=== PATIENT | male | born 1935 | race Asian ===

== ENCOUNTER → 2016-10-08 | Outpatient (CLI) | payer BC ==
[~2016-10-08] MED LIST: ALBUAER2 INH; ASPI81TA28 PO; CETI10TA10 PO; DIPH-437 PO; FLUO0.05 TOP; IBUP-103 PO; KETO2CRE14 TOP; MEMA1PAK PO; MOME50SP5 NAE; PRT/40 PO; TAMS0.4C59 PO
--- NOTE | 2016-10-08 10:14 | DIAGNOSTIC IMAGING REPORT ---
CHEST 2 VIEWS ROUTINE CLINICAL HISTORY: R05 Cough COMPARISON STUDY: 08/29/2016 FINDINGS: The cardiac and mediastinal contours are normal. There is no focal pulmonary consolidation. There is no failure. There are no pleural effusions.[ IMPRESSION: No active disease in the chest. Electronically signed by: Manav Black M.D. 10/08/2016 10:13 AM Dictated Date/Time: 10/08/2016 10:12 AM
[2016-10-08 10:52] LABS: BASO % 0.3 %; BASO ABS # 0.02 K/uL (0-0.2); COMPLETE YES; EOS % 1.7 %; HEMATOCRIT 40.8 % (42-52); IG% 0.2 %; LYMPH % 30.4 %; LYMPH ABS # 1.78 K/uL (1.2-3.4); MEAN CELL VOLUME 89.7 fL (80-100); MEAN CORPUSCULAR HEMOGLOBIN 30.5 pg (25-34); MEAN CORPUSCULAR HGB CONC 34.1 g/dl (32-36); MEAN PLATELET VOLUME 11.6 fL (7.4-10.4); MONO % 5.8 %; NEUT % 61.6 %; PLATELET COUNT 218 K/uL (130-400); RED BLOOD COUNT 4.55 M/uL (4.7-6.1); WHITE BLOOD COUNT 5.86 K/uL (4.8-10.8)
[2016-10-08 11:04] LABS: BLOOD UREA NITROGEN 17 mg/dl (7-18); BUN/CREATININE RATIO 19.4 (10-20); CALCIUM 8.2 mg/dl (8.5-10.1); CARBON DIOXIDE 29 mmol/L (21-32); CHLORIDE 109 mmol/L (98-107); CREATININE 0.89 mg/dl (0.60-1.40); GLUCOSE 85 mg/dl (70-99); POTASSIUM 3.9 mmol/L (3.5-5.1); SODIUM 144 mmol/L (136-145)
[2016-10-08 11:14] LABS: CHOLESTEROL 205 mg/dl (0-200); CHOLESTEROL/HDL RATIO 2.4; FERRITIN 59.2 ng/ml (8.0-388.0); HDL CHOLESTEROL 85 mg/dl; LDL CHOLESTEROL CALCULATED 110 mg/dl; TRIGLYCERIDES 49 mg/dl (0-150); VERY LOW DENSITY LIPOPROT CALC 10 mg/dl
== END | disposition home or self-care (01) ==
LOC: C.RAD1850 09:50
PROVIDERS: ATTEND Internal Medicine
DX: R05 Cough (principal); R97.20 Elevated prostate specific antigen [PSA]; D50.9 Iron deficiency anemia, unspecified; R73.9 Hyperglycemia, unspecified; R00.1 Bradycardia, unspecified; E55.9 Vitamin D deficiency, unspecified

== ENCOUNTER → 2016-10-22 | Outpatient (CLI) | payer BC ==
[~2016-10-22] MED LIST changes: +GADAVIST IV PRN
--- NOTE | 2016-10-22 13:44 | DIAGNOSTIC IMAGING REPORT ---
Brain and bilateral internal auditory canal MRI WITH AND WITHOUT CONTRAST HISTORY: H91.8X9 Asymmetrical hearing loss, unspecified [id number] TECHNIQUE: Multiplanar multisequence MRI of the brain and bilateral internal auditory canals were performed both before and after the intravenous administration of contrast. COMPARISON STUDY: Brain MRI 01/07/2015. FINDINGS: There is no mass, hematoma, midline shift, or acute infarct. The paranasal sinuses are clear. The mastoid air cells are clear. The ventricles and sulci demonstrate moderate age-related involutional changes. Scattered foci of T2 hyperintensity seen within the periventricular and subcortical white matter are nonspecific but suggestive of moderate microvascular ischemic changes. The major vascular flow voids at the skull base are well-maintained. No abnormal enhancement. There is no acute infarct within the right caudate head. Bilateral internal auditory canals are within normal limits. There are no masses identified. The 7th and 8th cranial nerves are normal in course and caliber. No evidence for inner ear dysplasia. IMPRESSION: 1. No acute intracranial abnormality. 2. Moderate atrophy and microvascular ischemic changes are again noted. 3. Normal bilateral internal auditory canals. Electronically signed by: Irvin Wakefield M.D. 10/22/2016 1:43 PM Dictated Date/Time: 10/22/2016 1:35 PM
== END | disposition home or self-care (01) ==
LOC: C.MRI 10:50
DX: H91.8X9 Other specified hearing loss, unspecified ear (principal); G31.9 Degenerative disease of nervous system, unspecified

== ENCOUNTER → 2017-02-09 | Outpatient (CLI) | payer BC ==
[~2017-02-09] MED LIST changes: -GADAVIST IV PRN; +PANT40TA2 PO; -PRT/40 PO
[2017-02-09 13:22] LABS: ESTIMATED AVERAGE GLUCOSE 85 mg/dl; HA1C FLAG Normal (Normal)
[2017-02-09 14:43] LABS: LYME DISEASE AB IGG NEG (NEG); LYME DISEASE AB IGM NEG (NEG)
[2017-02-13 12:51] LABS: VITAMIN B6** TC 926 107.6 ng/mL (2.1-21.7)
--- NOTE | 2017-02-15 10:47 | CODING QUERY MEDICAL NECESSITY ---
SUPPORTING DIAGNOSIS NEEDED Dr. Phillips, A supporting diagnosis is required for the test/procedure performed on this patient in order for us to be reimbursed by the patient's insurance. Please provide a supporting diagnosis for the following test/procedure listed below next to the test name along with your signature. *If there is no additional diagnosis for this patient that would support the following test/procedure please document that below next to the test/procedure. Test(s)/Procedure(s) that require a supporting diagnosis: * ([id number]) B12 VITAMIN LEVEL DIAGNOSIS: * ([id number]) VITAMIN B6 PYRODXAL PHOSPHATE DIAGNOSIS: * 51213 GLYCATED HEMOGLOBIN DIAGNOSIS: DATE OF SERVICE: 02/09/17 Provider Signature: Date: Thank you Campbell Coronel [facility] Information Management Once completed, please kindly fax back to [phone] For questions please call [phone]
== END | disposition home or self-care (01) ==
LOC: C.LAB1850 10:12
PROVIDERS: ATTEND Psychiatry & Neurology Neurology
DX: F01.50 Vascular dementia, unspecified severity, without behavioral disturbance, psychotic disturbance, mood disturbance, and anxiety (principal); R53.82 Chronic fatigue, unspecified; R41.3 Other amnesia; R73.9 Hyperglycemia, unspecified; E78.5 Hyperlipidemia, unspecified; D50.9 Iron deficiency anemia, unspecified

== ENCOUNTER 2022-09-06 19:07 | Inpatient (IN) ==
[2022-09-06] MEDS ORDERED: SODIUM CHLORIDE 0.9% 1000ML 1,000 ML IV ONE (19:15)
--- NOTE | 2022-09-06 19:20 | Emergency Department Note ---
Impression & Plan Rhabdomyolysis, Elevated troponin, Abnormal ECG ED Provider Note NAME: PATRIA SAVAGE AGE: 86 SEX: M : 1935 ARRIVES VIA: Ambulance INFORMANT: Patient, Both caretakers ED PROVIDER(S): Samy Jacome DO CHIEF COMPLAINT: fall HPI: Patient is a pleasantly demented 86-year-old male who presents to the ER following a mechanical fall. History is obtained from 2 caretakers who are at bedside. Neither of them that were there when this occurred as the third sand slinger operator was there. They did relay the story to these 2 caretakers. She notes that patient went into the bathroom to get a shower and locked the door. He heard a thud and he went over and the patient was talking to him. It took him a while to get into the room. Patient denies all complaints. They brought him in by EMS for complete work-up. History is limited with dementia PAST MEDICAL HISTORY:See Below PAST SURGICAL HISTORY:See Below FAMILY HISTORY:See Below SOCIAL HISTORY:See Below HOME MEDICATIONS:See Below ALLERGIES:See Below VITALS:See Below PHYSICAL EXAMINATION: GENERAL: alert, well appearing, well nourished, no distress, non-toxic HEAD: normal cephalic, atraumatic EYE EXAM: normal conjunctiva, PERRL and EOM's grossly intact OROPHARYNX: no exudate, no erythema, lips, buccal mucosa, and tongue normal and mucous membranes are moist NECK: supple, no nuchal rigidity, no adenopathy, non-tender CHEST: stable to compression anteriorly and posteriorly LUNGS: clear to auscultation. Normal chest wall mechanics HEART: no murmurs, S1 normal and S2 normal ABDOMEN: abdomen soft, non-tender, normo-active bowel sounds, no masses, no rebound or guarding. PELVIS: stable to compression anteriorly and posteriorly BACK: Back is symmetrical on inspection and there is no deformity, no midline tenderness, no CVA tenderness. UPPER EXTREMITIES: full active and passive range of motion of all joints without tenderness to palpation LOWER EXTREMITIES: full active and passive range of motion of all joints without tenderness to palpation NEURO EXAM: Awake alert pleasantly demented, cranial nerves II-XII grossly intact, normal speech, no gross weakness of arms, no gross weakness of legs. GCS: 14. MEDICAL DECISION MAKING: Patient is a very pleasantly demented 86-year-old male who history is obtained by 2 caretakers at bedside. They note that he was in the bathroom for 2 hours and are not sure what happened. They were talking to him through the door at 1 point. Unclear whether the patient had a syncopal event. IV was established blood work is obtained. Labs show mild leukocytosis 11,000. No significant anemia. BMP was unremarkable. Creatinine elevated at 1000. Troponin elevated at 30. UA with small amount of ketones suggesting dehydration. COVID was negative. CT head and cervical spine was negative. Chest x-ray was unremarkable. EKG does show new T wave inversions in comparison to previous. Uncertain again if patient syncopized versus fall as there is no one there to witness this and he does have dementia and with the elevated troponin and EKG changes discussed with the hospitalist for further evaluation. He was given IV fluids due to the rhabdo. external records were reviewed. Discussed with Dr. Lux Neal in regards to the presentation work-up and treatment. Triage Nursing notes reviewed. Limited review of prior medical records performed Vital Signs: reviewed and remarkable for HTN Differential diagnosis: Differential diagnoses include major intracranial, cervical, spinal, thoracic, abdominal, pelvic and neurologic injury. Fracture, contusion, sprain, strain, laceration, abrasions included as well. ER treatment provided: See below Diagnostics interpreted by me include EKG and cardiac monitoring as listed below: -Cardiac Monitoring: An order was placed for continuous cardiac monitoring. The monitor shows a rate of 70 with sinus rhythm. -ECG: Sinus rhythm rate of 65 Normal axis T wave inversion in the lateral leads This is new in comparison to previous -Laboratory studies:Interpreted by me as stated above in MDM and shown below. 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 Shingles Vertigo Surgical History S/P colonoscopy S/P inguinal hernia repair S/P wrist surgery Family History Brother Hepatitis Sister Cancer Other No family history of allergies No family history of bleeding disorder Denies family history of Ovarian cancer Prostate cancer Hearing loss Heart disease Myocardial infarction Breast cancer Colorectal cancer Hypertension Stroke Asthma Social History Smoking Status: Former smoker Tobacco Type: Cigarettes Age Started Using Tobacco: 16; Age Quit Using Tobacco: 38; packs per day: 1; Second Hand Exposure: No; Hx Alcohol Use: Yes Alcohol type: wine Alcohol Intake Frequency Comment: very rarely has wine Hx Substance Use: No Preferred Language: Nigerian Visual Impairment: Limited Hearing Ability: Use of Hearing Aid marital status: / Current Living Situation: Alone Current Living Situation Comment: Caregiver is Hilario- with him 24 hours a day current occupational status: retired How many Children do You have: 2 Feels Safe at Home: Yes Childhood Exposure to Second-Hand Smoke: No (caregiver unsure and pt doesn't know ) caffeine: No Dental Care, Regularly: Yes Physical Activity Frequency: 3-4 Times per Week Physical Activity Frequency Comment: walks when nice outside Seatbelt Use: always Sunscreen Use: Yes (if goes in sun ) Allergies Allergies Allergy/AdvReac Type Severity Reaction Status Date / Time pollen extracts Allergy Intermediate SNEEZING, Verified 09/06/22 20:28 RUNNY NOSE, ITCHY EYES Dust Allergy Intermediate SNEEZING, Uncoded 09/06/22 20:28 RUNNY NOSE, ITCHY EYES Rivastigmine PT24 AdvReac Unknown Vomiting, Uncoded 09/06/22 20:28 nausea Home Meds Home Medications Medication Instructions Recorded Confirmed atorvastatin 10 mg tablet 10 mg PO HS #30 tabs 03/27/21 09/06/22 acetaminophen 500 mg tablet 500 mg PO QID PRN Pain 12/11/21 09/06/22 (Tylenol Extra Strength) docusate sodium 100 mg capsule 100 mg PO .every other day 12/11/21 09/06/22 (Colace) melatonin 5 mg capsule 5 mg PO HS 12/11/21 09/06/22 loratadine 10 mg tablet (Claritin) 10 mg PO DAILY 10/20/22 01/08/23 amlodipine 2.5 mg tablet 2.5 mg PO QAM 09/06/22 09/06/22 quetiapine 25 mg tablet 50 mg PO HS 09/06/22 09/06/22 Previous Rx's Medication Instructions Recorded galantamine 16 mg 24 hr 16 mg PO QAM #30 caps 08/19/22 capsule,extended release Results & Data (ED) Vital Signs Vital Signs - 24 hr 09/06/22 19:28 09/06/22 20:09 09/06/22 20:29 Pulse Rate 69 Pulse Rate [Right Finger] 72 Respiratory Rate 20 Respiratory Depth Normal Blood Pressure 163/78 H Blood Pressure Mean 106 Pulse Oximetry 95 98 95 Oxygen Delivery Method Room Air Room Air Sepsis Recent Fever Within 48 Hours No Sepsis New/Unexplained Change in Mental Status No Sepsis Action Taken by Nursing No Action Required Laboratory Data 09/06/22 19:20 09/06/22 19:20 Lab Results 09/06/22 09/06/22 09/06/22 Range/Units 19:20 19:20 19:24 WBC 11.01 H (4.8-10.8) K/ul RBC 4.37 L (4.63-6.08) M/uL Hgb 13.4 L (14.0-18.0) g/dl Hct 38.5 L (40.1-51.0) % MCV 88.1 (80.0-100.0) fL MCH 30.7 (25.0-34.0) pg MCHC 34.8 (32.0-36.0) g/dL RDW Std Deviation 44.3 (36.4-46.3) fL RDW Coeff of Raegan 13.7 (11.5-14.5) % Plt Count 252 (130-400) K/uL MPV 11.3 (9.4-12.4) fL Immature Gran % (Auto) 0.3 % Neut % (Auto) 85.0 % Lymph % (Auto) 8.4 % Jack % (Auto) 6.0 % Eos % (Auto) 0.0 % Baso % (Auto) 0.3 % Neut # (Auto) 9.37 H (1.4-6.5) K/uL Lymph # (Auto) 0.92 L (1.2-3.4) K/uL Jack # (Auto) 0.66 (0.24-0.82) K/uL Eos # (Auto) 0.00 (0-0.50) K/uL Baso # (Auto) 0.03 (0-0.2) K/uL Immature Gran # (Auto) 0.03 H (0.00-0.02) K/uL Sodium 138 (136-145) mmol/L Potassium 3.8 (3.5-5.1) mmol/L Chloride 105 (98-107) mmol/L Carbon Dioxide 23 (21-32) mmol/L Anion Gap 10 (3-11) BUN 16 (6-23) mg/dl Creatinine 0.80 (0.6-1.4) mg/dl Est Cr Clr Drug Dosing 54.1 ml/min Est GFR ( Amer) 92.4 ml/min Est GFR (Non-Af Amer) 79.8 ml/min BUN/Creatinine Ratio 20.0 (10-20) Glucose 106 H (70-99(Fasting)) mg/dl Calcium 9.1 (8.5-10.1) mg/dl Total Bilirubin 1.5 H (0.2-1.0) mg/dl AST 26 (13-39) U/L ALT 13 (7-52) U/L Alkaline Phosphatase 75 (34-104) U/L Total Creatine Kinase 1002 H (30-223) U/L Troponin I High Sens 29.6 H (0-20) pg/ml Total Protein 7.2 (6.0-8.3) gm/dl Albumin 4.1 (3.4-5.0) gm/dl Globulin 3.1 (2.5-4.0) gm/dl Albumin/Globulin Ratio 1.3 (0.9-2) Urine Color Urine Appearance (Clear) Urine pH (4.5-7.5) Ur Specific Colome (1.000-1.030) Urine Protein (Negative) Urine Glucose (UA) (Negative) Urine Ketones (Negative) Urine Blood (Negative) Urine Nitrite (Negative) Urine Bilirubin (Negative) Urine Urobilinogen (Negative) Ur Leukocyte Esterase (Negative) SARS-CoV-2, RNA, NAAT NEGATIVE (NEGATIVE) 09/06/22 Range/Units 19:46 WBC (4.8-10.8) K/ul RBC (4.63-6.08) M/uL Hgb (14.0-18.0) g/dl Hct (40.1-51.0) % MCV (80.0-100.0) fL MCH (25.0-34.0) pg MCHC (32.0-36.0) g/dL RDW Std Deviation (36.4-46.3) fL RDW Coeff of Raegan (11.5-14.5) % Plt Count (130-400) K/uL MPV (9.4-12.4) fL Immature Gran % (Auto) % Neut % (Auto) % Lymph % (Auto) % Jack % (Auto) % Eos % (Auto) % Baso % (Auto) % Neut # (Auto) (1.4-6.5) K/uL Lymph # (Auto) (1.2-3.4) K/uL Jack # (Auto) (0.24-0.82) K/uL Eos # (Auto) (0-0.50) K/uL Baso # (Auto) (0-0.2) K/uL Immature Gran # (Auto) (0.00-0.02) K/uL Sodium (136-145) mmol/L Potassium (3.5-5.1) mmol/L Chloride (98-107) mmol/L Carbon Dioxide (21-32) mmol/L Anion Gap (3-11) BUN (6-23) mg/dl Creatinine (0.6-1.4) mg/dl Est Cr Clr Drug Dosing ml/min Est GFR ( Amer) ml/min Est GFR (Non-Af Amer) ml/min BUN/Creatinine Ratio (10-20) Glucose (70-99(Fasting)) mg/dl Calcium (8.5-10.1) mg/dl Total Bilirubin (0.2-1.0) mg/dl AST (13-39) U/L ALT (7-52) U/L Alkaline Phosphatase (34-104) U/L Total Creatine Kinase (30-223) U/L Troponin I High Sens (0-20) pg/ml Total Protein (6.0-8.3) gm/dl Albumin (3.4-5.0) gm/dl Globulin (2.5-4.0) gm/dl Albumin/Globulin Ratio (0.9-2) Urine Color Yellow Urine Appearance Clear (Clear) Urine pH 6.0 (4.5-7.5) Ur Specific Colome 1.017 (1.000-1.030) Urine Protein Negative (Negative) Urine Glucose (UA) Negative (Negative) Urine Ketones 2+ H (Negative) Urine Blood Negative (Negative) Urine Nitrite Negative (Negative) Urine Bilirubin Negative (Negative) Urine Urobilinogen Negative (Negative) Ur Leukocyte Esterase Negative (Negative) SARS-CoV-2, RNA, NAAT (NEGATIVE) Administered Medications Discontinued Medications Sodium Chloride (Nss 1000ml) 1,000 mls @ 999 mls/hr IV .Q1H1M ONE Stop: 09/06/22 20:15 Last Infusion: 09/06/22 21:24 Dose: 0 mls/hr Documented By: Admin: 09/06/22 20:13 Dose: 999 mls/hr Documented By: [facility] [place] Imaging Data Radiologist's Impression: Cervical Spine CT 09/06/22 19:[address] DOSE: HISTORY: Neck pain. fall TECHNIQUE: Multiaxial CT images of the cervical spine were performed and reformatted in the sagittal and coronal plane without the use of contrast. A dose lowering technique was utilized adhering to the principles of ALARA. COMPARISON: Cervical spine CT 02/25/2021. FINDINGS: No fractures. Mild anterolisthesis of C4 on C5, unchanged. Prevertebral soft tissues and the C1-C2 interval are intact. No pneumothorax. Degenerative changes again noted. IMPRESSION: No fractures within the cervical spine. ACT 112: Negative or not required by law. Electronically signed by: Irvin Wakefield M.D. 09/06/2022 7:[address] 09/06/22 19:[address] DOSE: 1094.60 mGy.cm HISTORY: fall TECHNIQUE: Multiaxial CT images of the head were performed without the use of intravenous contrast. Automated exposure control was utilized for this study. A dose lowering technique was utilized adhering to the principles of ALARA. Comparison: Head CT 10/18/2021. Findings: Mild mucosal thickening within the paranasal sinuses. The mastoid air cells are clear. The calvarium and skull base are intact. There is no mass, hematoma, midline shift, acute infarct. White matter hypodensity is nonspecific but suggestive of microvascular ischemic change. The ventricles and sulci demonstrate mild age-related involutional changes. Old punctate lacunar infarcts within the right basal ganglia. Impression: No acute intracranial abnormality. Atrophy and microvascular ischemic changes. ACT 112: Negative or not required by law. Electronically signed by: Irvin Wakefield M.D. 09/06/2022 7:47 PM Discharge Plan Visit Data Chief Complaint: Fall Stated Complaint: GROUND LEVEL FALL ED Provider: Samy Jacome Discharge Problem: Rhabdomyolysis, Elevated troponin, Abnormal ECG Forms Stand Alone Forms: [facility] Treatful Prescriptions Prescriptions: No Action galantamine 16 mg capsule,ext rel. pellets 24 hr 16 mg PO QAM Qty: 30 5RF Rx Instructions: administer with breakfast take at 8am docusate sodium [Colace] 100 mg capsule 100 mg PO .every other day melatonin 5 mg capsule 5 mg PO HS acetaminophen [Tylenol Extra Strength] 500 mg tablet 500 mg PO QID PRN (Reason: Pain) loratadine [Claritin] 10 mg tablet 10 mg PO DAILY atorvastatin 10 mg tablet 10 mg PO HS Qty: 30 quetiapine 25 mg tablet 50 mg PO HS amlodipine 2.5 mg tablet 2.5 mg PO QAM Referrals Referrals: Noah Rodriguez, [Primary Care Provider] -
[2022-09-06 19:33] LABS: Basophils # (auto) 0.03 K/uL (0-0.2); Basophils % (auto) 0.3 %; Hematocrit (blood only) 38.5 % (40.1-51.0); Hemoglobin 13.4 g/dl (14.0-18.0); Immature Granulocytes # (auto) 0.03 K/uL (0.00-0.02); Immature Granulocytes % (auto) 0.3 %; Lymphocytes # (auto) 0.92 K/uL (1.2-3.4); Lymphocytes % (auto) 8.4 %; Mean Corpuscular Hemoglobin 30.7 pg (25.0-34.0); Mean Corpuscular Hgb Conc 34.8 g/dL (32.0-36.0); Mean Corpuscular Volume 88.1 fL (80.0-100.0); Mean Platelet Volume 11.3 fL (9.4-12.4); Monocytes # (auto) 0.66 K/uL (0.24-0.82); Neutrophils # (auto) 9.37 K/uL (1.4-6.5); Platelet Count 252 K/uL (130-400); RDW Coefficient of Variation 13.7 % (11.5-14.5); RDW Standard Deviation 44.3 fL (36.4-46.3); Red Blood Count 4.37 M/uL (4.63-6.08); White Blood Count 11.01 K/ul (4.8-10.8)
--- NOTE | 2022-09-06 19:49 | CT Scan Report ---
HEAD CT NONCONTRAST CT DOSE: 1094.60 mGy.cm HISTORY: fall TECHNIQUE: Multiaxial CT images of the head were performed without the use of intravenous contrast. A utomated exposure control was utilized for this study. A dose lowering technique was utilized adheri ng to the principles of ALARA. Comparison: Head CT 10/18/2021. Findings: Mild mucosal thickening within the paranasal sinuses. The mastoid air cells are clear. The calvarium and skull base are intact. There is no mass, hematoma, midline shift, acute infarct. White matter hypodensity is nonspecific but suggestive of microvascular ischemic change. The ventricles and sulci demonstrate mild age-related involutional changes. Old punctate lacunar infarcts within the ri ght basal ganglia. Impression: No acute intracranial abnormality. Atrophy and microvascular ischemic changes. ACT 112: Negative or not required by law. Electronically signed by: Irvin Wakefield M.D. 09/06/2022 7:47 PM
--- NOTE | 2022-09-06 19:55 | CT Scan Report ---
CERVICAL SPINE CT CT DOSE: HISTORY: Neck pain. fall TECHNIQUE: Multiaxial CT images of the cervical spine were performed and reformatted in the sagittal and coronal plane without the use of contrast. A dose lowering technique was utilized adhering to e principles of ALARA. COMPARISON: Cervical spine CT 02/25/2021. FINDINGS: No fractures. Mild anterolisthesis of C4 on C5, unchanged. Prevertebral soft tissues and th e C1-C2 interval are intact. No pneumothorax. Degenerative changes again noted. IMPRESSION: No fractures within the cervical spine. ACT 112: Negative or not required by law. Electronically signed by: Irvin Wakefield M.D. 09/06/2022 7:52 PM
[2022-09-06 20:00] LABS: Appearance Urine Clear (Clear); Bilirubin Urine Negative (Negative); Blood Urine Negative (Negative); Color Urine Yellow; Glucose Urine UA Negative (Negative); Ketones Urine 2+ (Negative); Leukocyte Esterase Urine Negative (Negative); Nitrite Urine Negative (Negative); Protein Urine Negative (Negative); Specific Gravity Urine 1.017 (1.000-1.030); Urobilinogen Urine Negative (Negative)
[2022-09-06 20:03] LABS: Albumin Globulin Ratio 1.3 (0.9-2); Albumin Level 4.1 gm/dl (3.4-5.0); Bilirubin,Total 1.5 mg/dl (0.2-1.0); Calcium 9.1 mg/dl (8.5-10.1); Creatinine Clr Calc Pharmacy 54.1 ml/min; Est GFR (African American) 92.4 ml/min; Est GFR (Non-African American) 79.8 ml/min; Globulin 3.1 gm/dl (2.5-4.0); Potassium 3.8 mmol/L (3.5-5.1); Total Protein 7.2 gm/dl (6.0-8.3)
[2022-09-06 20:07] LABS: Troponin I High Sensitivity 29.6 pg/ml (0-20)
--- NOTE | 2022-09-06 21:35 | History & Physical Report ---
Date of Service September 06, 2022 Assessment & Plan (1) Confusion and disorientation: (2) Uncontrolled hypertension: (3) Mixed Alzheimer's and vascular dementia: (4) Dyslipidemia: (5) Asthma: (6) Hereditary elliptocytosis: (7) Sensorineural hearing loss (SNHL) of both ears: (8) Iron deficiency anemia: (9) Enlarged prostate: (10) Elevated troponin: (11) Rhabdomyolysis: (12) Dehydration, mild: (13) Rhabdomyolysis: (14) Abnormal ECG: Plan Elevated troponin/abnormal EKG/hypertension- The patient will be admitted to telemetry for serial cardiac enzymes, serial EKG's, cardiac rhythm monitoring and a 2-D echocardiogram with Dopplers. Troponin 29.6, with repeat ordered EKG with normal sinus rhythm at 65, with new T wave inversions in leads V5 and V6 Continue amlodipine 2.5 mg daily add aspirin 81 mg daily chewable when more alert Consult cardiology Confusion and disorientation- Per caretakers, has been an issue over the past 24 hours Follow urine culture and sensitivity, initial UA looks normal Patient is somewhat dehydrated, unclear if this was a cause or effect at this time Rhabdomyolysis/dehydration- CK 1002 Creatinine 0.8 is close to baseline NSS at 100 mils per hour x1 L Repeat laboratories in a.m. Mixed Alzheimer's and vascular dementia- If alertness improves, will resume galantamine in the a.m. Insomnia- If mentation improves, will resume melatonin and quetiapine at bedtime tomorrow Hyperlipidemia- Resume atorvastatin in the evening tomorrow if more alert Check a fasting lipid panel and hemoglobin A1c History of Present Illness Chief Complaint: The patient presents to the emergency department after a fall when the patient was in the restroom, as heard by a thud sound while his caretakers were in the room outside Primary Care Provider: Noah Rodriguez DO The patient is an 86-year-old male with a past medical history including glenohumeral arthritis, uncontrolled hypertension, mixed Alzheimer's and vascular dementia, dyslipidemia, asthma, hereditary elliptocytosis, SNHL of both ears, iron deficiency anemia, enlarged prostate and insomnia. The patient reportedly had gone into the restroom earlier to take a shower, and have it in there for a longer time than usual. They heard a loud noise, and after a delay in getting the room, were able to talk with the patient, and the patient was brought to the ED for further assessment. Caretakers report that he has been more confused than his baseline with decreased oral intake over the past 24 hours. The patient himself is not able to contribute to his HPI or review of systems, and information is gathered from his 2 acute caretakers who are in the room Allergies Allergy/AdvReac Type Severity Reaction Status Date / Time pollen extracts Allergy Intermediate SNEEZING, Verified 09/06/22 20:28 RUNNY NOSE, ITCHY EYES Dust Allergy Intermediate SNEEZING, Uncoded 09/06/22 20:28 RUNNY NOSE, ITCHY EYES Rivastigmine PT24 AdvReac Unknown Vomiting, Uncoded 09/06/22 20:28 nausea Home Medications Medication Instructions Recorded Confirmed Type atorvastatin 10 mg tablet 10 mg PO HS #30 tabs 03/27/21 09/06/22 History acetaminophen 500 mg tablet 500 mg PO QID PRN Pain 12/11/21 09/06/22 History (Tylenol Extra Strength) docusate sodium 100 mg capsule 100 mg PO .every other day 12/11/21 09/06/22 History (Colace) melatonin 5 mg capsule 5 mg PO HS 12/11/21 09/06/22 History loratadine 10 mg tablet (Claritin) 10 mg PO DAILY 06/18/22 09/06/22 History galantamine 16 mg 24 hr 16 mg PO QAM #30 caps 08/19/22 09/06/22 Rx capsule,extended release amlodipine 2.5 mg tablet 2.5 mg PO QAM 09/06/22 09/06/22 History quetiapine 25 mg tablet 50 mg PO HS 09/06/22 09/06/22 History Past Med/Surg History Medical History (Updated 09/06/22 @ 21:53 by Samy Jacome DO) Anal disorder Asthma Chronic cerebral ischemia Chronic knee pain Closed head injury Dyslipidemia Enlarged prostate History of tobacco use Iron deficiency anemia Mixed Alzheimer's and vascular dementia Sensorineural hearing loss (SNHL) of both ears Shingles Vertigo Surgical History S/P colonoscopy S/P inguinal hernia repair S/P wrist surgery Family History Brother Hepatitis Sister Cancer Other No family history of allergies No family history of bleeding disorder Denies family history of Ovarian cancer Prostate cancer Hearing loss Heart disease Myocardial infarction Breast cancer Colorectal cancer Hypertension Stroke Asthma Social History Smoking Status: Former smoker Tobacco Type: Cigarettes Age Started Using Tobacco: 16; Age Quit Using Tobacco: 38; packs per day: 1; Second Hand Exposure: No; Hx Alcohol Use: Yes Alcohol type: wine Alcohol Intake Frequency Comment: very rarely has wine Hx Substance Use: No Preferred Language: [place] Visual Impairment: Limited Hearing Ability: Use of Hearing Aid marital status: / Current Living Situation: Alone Current Living Situation Comment: Caregiver is Hilario- with him 24 hours a day current occupational status: retired How many Children do You have: 2 Feels Safe at Home: Yes Childhood Exposure to Second-Hand Smoke: No (caregiver unsure and pt doesn't know ) caffeine: No Dental Care, Regularly: Yes Physical Activity Frequency: 3-4 Times per Week Physical Activity Frequency Comment: walks when nice outside Seatbelt Use: always Sunscreen Use: Yes (if goes in sun ) Review of Systems Review of Systems: Unobtainable due to cognitive status Physical Exam Physical Exam: The patient is awake, confused, normocephalic and atraumatic, lying in bed and in no acute distress. HEENT--PERRL, EOMI, mucous membranes and oropharynx moderately dry. Neck--supple. No JVD. No bruits. Thyroid normal, trachea midline, no adenopathy. Heart--normal S1 and S2. No murmurs, rubs or gallops. Lungs--clear bilaterally, no respiratory distress, no accessory muscle use. Abdomen--normal bowel sounds and soft. Nontender. Nondistended, no hernias or masses, no organomegaly. Extremities--no cyanosis or clubbing. No edema. Dermatologic--normal skin turgor, normal color, no abnormal lymph nodes, no rash. Neurologic--cranial nerves II through XII grossly intact. Rheumatologic--normal range of motion. Psychiatric--confused Results & Data Results & Data ([facility]) Vital Signs (Past 12 Hours) Vital Signs Pulse Pulse Resp BP Pulse Ox O2 Del Method 09/06/22 20:29 95 Room Air 09/06/22 20:09 72 20 98 09/06/22 19:28 69 163/78 H 95 Room Air Laboratory Results Laboratory Results WBC 11.01 K/ul (4.8-10.8) H 09/06/22 19:20 RBC 4.37 M/uL (4.63-6.08) L 09/06/22 19:20 Hgb 13.4 g/dl (14.0-18.0) L 09/06/22 19:20 Hct 38.5 % (40.1-51.0) L 09/06/22 19:20 MCV 88.1 fL (80.0-100.0) 09/06/22 19:20 MCH 30.7 pg (25.0-34.0) 09/06/22 19:20 MCHC 34.8 g/dL (32.0-36.0) 09/06/22 19:20 RDW Std Deviation 44.3 fL (36.4-46.3) 09/06/22 19:20 RDW Coeff of Raegan 13.7 % (11.5-14.5) 09/06/22 19:20 Plt Count 252 K/uL (130-400) 09/06/22 19:20 MPV 11.3 fL (9.4-12.4) 09/06/22 19:20 Immature Gran % (Auto) 0.3 % 09/06/22 19:20 Neut % (Auto) 85.0 % 09/06/22 19:20 Lymph % (Auto) 8.4 % 09/06/22 19:20 Anson % (Auto) 6.0 % 09/06/22 19:20 Eos % (Auto) 0.0 % 09/06/22 19:20 Baso % (Auto) 0.3 % 09/06/22 19:20 Neut # (Auto) 9.37 K/uL (1.4-6.5) H 09/06/22 19:20 Lymph # (Auto) 0.92 K/uL (1.2-3.4) L 09/06/22 19:20 Anson # (Auto) 0.66 K/uL (0.24-0.82) 09/06/22 19:20 Eos # (Auto) 0.00 K/uL (0-0.50) 09/06/22 19:20 Baso # (Auto) 0.03 K/uL (0-0.2) 09/06/22 19:20 Immature Gran # (Auto) 0.03 K/uL (0.00-0.02) H 09/06/22 19:20 Sodium 138 mmol/L (136-145) 09/06/22 19:20 Potassium 3.8 mmol/L (3.5-5.1) 09/06/22 19:20 Chloride 105 mmol/L (98-107) 09/06/22 19:20 Carbon Dioxide 23 mmol/L (21-32) 09/06/22 19:20 Anion Gap 10 (3-11) 09/06/22 19:20 BUN 16 mg/dl (6-23) 09/06/22 19:20 Creatinine 0.80 mg/dl (0.6-1.4) 09/06/22 19:20 Est Cr Clr Drug Dosing 54.1 ml/min 09/06/22 19:20 Est GFR ( Amer) 92.4 ml/min 09/06/22 19:20 Est GFR (Non-Af Amer) 79.8 ml/min 09/06/22 19:20 BUN/Creatinine Ratio 20.0 (10-20) 09/06/22 19:20 Glucose 106 mg/dl (70-99(Fasting)) H 09/06/22 19:20 Calcium 9.1 mg/dl (8.5-10.1) 09/06/22 19:20 Total Bilirubin 1.5 mg/dl (0.2-1.0) H 09/06/22 19:20 AST 26 U/L (13-39) 09/06/22 19:20 ALT 13 U/L (7-52) 09/06/22 19:20 Alkaline Phosphatase 75 U/L (34-104) 09/06/22 19:20 Total Creatine Kinase 1002 U/L (30-223) H 09/06/22 19:20 Troponin I High Sens 29.6 pg/ml (0-20) H 09/06/22 19:20 Total Protein 7.2 gm/dl (6.0-8.3) 09/06/22 19:20 Albumin 4.1 gm/dl (3.4-5.0) 09/06/22 19:20 Globulin 3.1 gm/dl (2.5-4.0) 09/06/22 19:20 Albumin/Globulin Ratio 1.3 (0.9-2) 09/06/22 19:20 Urine Color Yellow 09/06/22 19:46 Urine Appearance Clear (Clear) 09/06/22 19:46 Urine pH 6.0 (4.5-7.5) 09/06/22 19:46 Ur Specific [place] 1.017 (1.000-1.030) 09/06/22 19:46 Urine Protein Negative (Negative) 09/06/22 19:46 Urine Glucose (UA) Negative (Negative) 09/06/22 19:46 Urine Ketones 2+ (Negative) H 09/06/22 19:46 Urine Blood Negative (Negative) 09/06/22 19:46 Urine Nitrite Negative (Negative) 09/06/22 19:46 Urine Bilirubin Negative (Negative) 09/06/22 19:46 Urine Urobilinogen Negative (Negative) 09/06/22 19:46 Ur Leukocyte Esterase Negative (Negative) 09/06/22 19:46 SARS-CoV-2, RNA, NAAT NEGATIVE (NEGATIVE) 09/06/22 19:[address] 09/06/22 19:[address] DOSE: HISTORY: Neck pain. fall TECHNIQUE: Multiaxial CT images of the cervical spine were performed and reformatted in the sagittal and coronal plane without the use of contrast. A dose lowering technique was utilized adhering to the principles of ALARA. COMPARISON: Cervical spine CT 02/25/2021. FINDINGS: No fractures. Mild anterolisthesis of C4 on C5, unchanged. Prevertebral soft tissues and the C1-C2 interval are intact. No pneumothorax. Degenerative changes again noted. IMPRESSION: No fractures within the cervical spine. ACT 112: Negative or not required by law. Electronically signed by: Irvin Wakefield M.D. 09/06/2022 7:[address] 09/06/22 19:[address] DOSE: 1094.60 mGy.cm HISTORY: fall TECHNIQUE: Multiaxial CT images of the head were performed without the use of intravenous contrast. Automated exposure control was utilized for this study. A dose lowering technique was utilized adhering to the principles of ALARA. Comparison: Head CT 10/18/2021. Findings: Mild mucosal thickening within the paranasal sinuses. The mastoid air cells are clear. The calvarium and skull base are intact. There is no mass, hematoma, midline shift, acute infarct. White matter hypodensity is nonspecific but suggestive of microvascular ischemic change. The ventricles and sulci demonstrate mild age-related involutional changes. Old punctate lacunar infarcts within the right basal ganglia. Impression: No acute intracranial abnormality. Atrophy and microvascular ischemic changes. ACT 112: Negative or not required by law. Electronically signed by: Irvin Wakefield M.D. 09/06/2022 7:47 PM Code Status & VTE Plan Code Status Full code VTE Prophylaxis Plan VTE Prophylaxis will be ordered: Yes PG Care Time/CCT Total # of Minutes Spent Total Time Spent with Patient: Total time spent is greater than 50% in coordination of care (as documented) at patient's floor/unit and/or counseling patient: Coding Level of Care Code 28079 INT INP/OBS CARE 3/75MIN Diagnoses Confusion and disorientation R41.0 Uncontrolled hypertension I10 Mixed Alzheimer's and vascular dementia G30.9; F01.50; F02.80 Dyslipidemia E78.5 Asthma J45.909 Hereditary elliptocytosis D58.1 Sensorineural hearing loss (SNHL) of both ears H90.3 Iron deficiency anemia D50.9 Enlarged prostate N40.0 Elevated troponin R77.8 Rhabdomyolysis M62.82 Dehydration, mild E86.0 Rhabdomyolysis M62.82 Abnormal ECG R94.31
[2022-09-06] MEDS ORDERED: ACETAMINOPHEN 325 MG TAB PO PRN (22:43)
[2022-09-06] MEDS ORDERED: ONDANSETRON INJ 2 MG/ML 2 ML VIAL IV PRN (22:43)
[2022-09-06] MEDS ORDERED: NSS + 20MEQ KCL 20 MEQ/1,000 ML BAG IV SCH (23:15)
[2022-09-07 06:58] LABS: Basophils # (auto) 0.02 K/uL (0-0.2); Basophils % (auto) 0.3 %; Eosinophils # (auto) 0.03 K/uL (0-0.50); Eosinophils % (auto) 0.4 %; Hematocrit (blood only) 34.8 % (40.1-51.0); Hemoglobin 12.2 g/dl (14.0-18.0); Immature Granulocytes # (auto) 0.02 K/uL (0.00-0.02); Immature Granulocytes % (auto) 0.3 %; Lymphocytes # (auto) 1.13 K/uL (1.2-3.4); Lymphocytes % (auto) 14.9 %; Mean Corpuscular Hemoglobin 31.2 pg (25.0-34.0); Mean Corpuscular Hgb Conc 35.1 g/dL (32.0-36.0); Monocytes # (auto) 0.59 K/uL (0.24-0.82); Monocytes % (auto) 7.8 %; Neutrophils # (auto) 5.79 K/uL (1.4-6.5); Neutrophils % (auto) 76.3 %; Platelet Count 221 K/uL (130-400); RDW Coefficient of Variation 13.9 % (11.5-14.5); RDW Standard Deviation 45.1 fL (36.4-46.3); Red Blood Count 3.91 M/uL (4.63-6.08); White Blood Count 7.58 K/ul (4.8-10.8)
--- NOTE | 2022-09-07 07:09 | XRay Report ---
XR chest 1V portable CLINICAL HISTORY: fall TECHNIQUE: Single frontal radiograph of the chest was obtained. Comparison: Comparison is made to chest radiograph 02/25/2021 FINDINGS: No lines and tubes are seen. Calcified aortic knob is seen. Lungs are underinflated but clear. No katya dence of pleural effusion or pneumothorax. IMPRESSION: No acute chest disease. ACT 112: Negative or not required by law. Electronically signed by: Capo Mustafa M.D. 09/07/2022 7:08 AM
[2022-09-07 07:33] LABS: Albumin Globulin Ratio 1.3 (0.9-2); Albumin Level 3.6 gm/dl (3.4-5.0); Bilirubin,Total 1.4 mg/dl (0.2-1.0); Calcium 8.2 mg/dl (8.5-10.1); Creatinine Clr Calc Pharmacy 44.3 ml/min; Est GFR (African American) 88.5 ml/min; Est GFR (Non-African American) 76.3 ml/min; Globulin 2.7 gm/dl (2.5-4.0); Potassium 3.9 mmol/L (3.5-5.1); Total Protein 6.3 gm/dl (6.0-8.3)
[2022-09-07 07:35] LABS: Troponin I High Sensitivity 28.7 pg/ml (0-20)
[2022-09-07] MEDS ORDERED: LORATADINE 10 MG TAB PO SCH (09:00)
[2022-09-07] MEDS: GALANTAMINE HYDROBROMIDE 8 MG CAPER PO SCH (09:45)
[2022-09-07] MEDS: HEPARIN SOD 5,000 UNIT/0.5 ML VIAL SQ SCH ×2 (09:45→21:17)
[2022-09-07] MEDS: amLODIPine BESYLATE 5 MG TAB PO SCH (11:38)
[2022-09-07 13:56] LABS: Appearance Urine Clear (Clear); Bacteria Urine Automated Negative (Negative); Bilirubin Urine Negative (Negative); Blood Urine 2+ (Negative); Cast Urine Automated 0 /lpf (0-5); Color Urine Yellow; Epithelial Cell Urine Auto >30 /lpf (0-5); Glucose Urine UA Negative (Negative); Ketones Urine Negative (Negative); Leukocyte Esterase Urine 1+ (Negative); Nitrite Urine Negative (Negative); Protein Urine Negative (Negative); Specific Gravity Urine 1.009 (1.000-1.030); Urobilinogen Urine Negative (Negative); pH Urine 6.5 (4.5-7.5)
[2022-09-07] MEDS ORDERED: cefTRIAXone SODIUM 1,000 MG in DEXTROSE 5% AD-VAN 50 ML IV SCH (14:00)
--- NOTE | 2022-09-07 14:22 | Electrocardiogram Report ---
Test Reason : Blood Pressure : / mmHG Vent. Rate : 065 BPM Atrial Rate : 065 BPM P-R Int : 174 ms QRS Dur : 076 ms QT Int : 418 ms P-R-T Axes : 065 054 101 degrees QTc Int : 434 ms Poor data quality, interpretation may be adversely affected Normal sinus rhythm T wave abnormality, consider lateral ischemia Abnormal ECG When compared with ECG of 25-FEB-2021 11:44, Inverted T waves have replaced nonspecific T wave abnormality in Lateral leads QT has lengthened Confirmed by Ryan Barajas ([id number]) on 09/07/2022 2:22:41 PM Referred By: REFERRED SELF Confirmed By:Ryan Barajas
--- NOTE | 2022-09-07 14:23 | Electrocardiogram Report ---
Test Reason : Blood Pressure : / mmHG Vent. Rate : 056 BPM Atrial Rate : 056 BPM P-R Int : 162 ms QRS Dur : 076 ms QT Int : 406 ms P-R-T Axes : 065 042 091 degrees QTc Int : 391 ms Poor data quality, interpretation may be adversely affected Sinus bradycardia Nonspecific T wave abnormality T wave abnormality, consider lateral ischemia Abnormal ECG When compared with ECG of 06-SEP-2022 19:43, T wave inversion less evident in Lateral leads Confirmed by Ryan Barajas ([id number]) on 09/07/2022 2:23:06 PM Referred By: REFERRED SELF Confirmed By:Ryan Barajas
--- NOTE | 2022-09-07 14:27 | Hospitalist Progress Note ---
Date of Service September 07, 2022 Assessment & Plan (1) Confusion and disorientation: Plan: Supportive care. Treat any underlying infectious process. Blood and urine cu ltures are pending. Empiric Rocephin, day 1. (2) Uncontrolled hypertension: Plan: Amlodipine started today, September 07. We will follow (3) Mixed Alzheimer's and vascular dementia: Plan: Supportive care. Treat any underlying infectious process (4) Dyslipidemia: Plan: Diet control and medication therapy (5) Asthma: Plan: Currently stable. Continue current medication management (6) Hereditary elliptocytosis: Plan: Aware. Not an active acute problem at this time (7) Sensorineural hearing loss (SNHL) of both ears: Plan: Aware. (8) Iron deficiency anemia: Plan: Iron supplementation as needed (9) Enlarged prostate: Plan: Aware. Not an issue at this time (10) Elevated troponin: Plan: No evidence of acute coronary syndrome. (11) Rhabdomyolysis: Plan: Very mild. Continue IV fluids. Serial lab studies (12) Dehydration, mild: Plan: Treated with intravenous fluids (13) Abnormal ECG: Plan: Telemetry. No evidence of acute coronary syndrome. Plan To be determined. OT and PT assessments requested. He may need SNF placement transiently Admission and Anticipated Discharge Date Admission Date: September 06, 2022 Subjective Difficult to communicate with due to language barrier. Family is at the bedside . He is arousable but has baseline dementia. Family states mental status is worse than usual which raises the question of occult infection. Urine and blood cultures will be obtained and empiric intravenous Rocephin started, day 1. This can be discontinued if cultures prove negative. Amlodipine added for better blood pressure control. OT and PT assessments ordered. Review of Systems Review of Systems: Cannot assess due to language barrier and baseline dementia Physical Exam Physical Exam: General-alert . Difficult to assess orientation due to language barrier. No acute problems HEENT-head atraumatic and normocephalic, pupils equal and reactive to light, extraocular muscles intact Neck-no lymphadenopathy or thyromegaly, trachea midline Chest-clear to auscultation anteriorly. No wheezing or rhonchi Cardiac-regular rate and rhythm, normal S1 and S2 Abdomen-normal bowel sounds, nontender, no hepatosplenomegaly Extremities-no cyanosis, clubbing, or edema Neuro-appears weak without focal motor deficits Psych-baseline dementia. Cannot assess Results & Data Results & Data ([facility]) Vital Signs (Past 12 Hours) Vital Signs Temp Pulse Pulse Resp BP Pulse Ox O2 Del Method 09/07/22 12:28 36.9 C 57 L 19 169/81 H 94 Room Air 09/07/22 08:00 58 L 09/07/22 08:24 37.0 C 57 L 18 161/63 H 93 Room Air 09/07/22 06:40 65 09/07/22 03:00 36.8 C 61 159/74 H 95 Room Air Laboratory Results 09/07/22 06:50 09/07/22 06:50 PG Care Time/CCT Total # of Minutes Spent Total Time Spent with Patient: Total time spent is greater than 50% in coordination of care (as documented) at patient's floor/unit and/or counseling patient: Coding Level of Care Code 91244 SUB INP/OBS CARE 3/50MIN Diagnoses Confusion and disorientation R41.0 Uncontrolled hypertension I10 Mixed Alzheimer's and vascular dementia G30.9; F01.50; F02.80 Dyslipidemia E78.5 Asthma J45.909 Hereditary elliptocytosis D58.1 Sensorineural hearing loss (SNHL) of both ears H90.3 Iron deficiency anemia D50.9 Enlarged prostate N40.0 Elevated troponin R77.8 Rhabdomyolysis M62.82 Dehydration, mild E86.0 Abnormal ECG R94.31
[2022-09-07] MEDS: QUEtiapine FUMARATE 25 MG TABLET PO SCH ×3 (15:17→21:16)
[2022-09-07] MEDS ORDERED: HALOPERIDOL LACTATE 5 MG/ML 1 ML VIAL ONE (15:28)
--- NOTE | 2022-09-07 16:13 | XCELERA ---
[id number] \\[id number]_[id number]}___[id number]
[2022-09-07] MEDS ORDERED: QUEtiapine FUMARATE 25 MG TABLET PO SCH (21:00)
[2022-09-07] MEDS ORDERED: MELATONIN 3 MG TAB PO SCH (21:00)
[2022-09-07] MEDS ORDERED: ATORVASTATIN 10 MG TAB PO SCH (21:00)
[2022-09-08 06:27] LABS: Basophils # (auto) 0.03 K/uL (0-0.2); Basophils % (auto) 0.4 %; Eosinophils # (auto) 0.08 K/uL (0-0.50); Eosinophils % (auto) 1.2 %; Hemoglobin 12.3 g/dl (14.0-18.0); Immature Granulocytes # (auto) 0.01 K/uL (0.00-0.02); Immature Granulocytes % (auto) 0.1 %; Lymphocytes # (auto) 1.94 K/uL (1.2-3.4); Lymphocytes % (auto) 28.2 %; Mean Corpuscular Hemoglobin 31.1 pg (25.0-34.0); Mean Corpuscular Hgb Conc 35.1 g/dL (32.0-36.0); Mean Corpuscular Volume 88.4 fL (80.0-100.0); Mean Platelet Volume 10.8 fL (9.4-12.4); Monocytes # (auto) 0.64 K/uL (0.24-0.82); Monocytes % (auto) 9.3 %; Neutrophils # (auto) 4.17 K/uL (1.4-6.5); Neutrophils % (auto) 60.8 %; Platelet Count 217 K/uL (130-400); RDW Coefficient of Variation 13.9 % (11.5-14.5); RDW Standard Deviation 45.5 fL (36.4-46.3); Red Blood Count 3.96 M/uL (4.63-6.08); White Blood Count 6.87 K/ul (4.8-10.8)
[2022-09-08 07:06] LABS: Albumin Globulin Ratio 1.3 (0.9-2); Albumin Level 3.7 gm/dl (3.4-5.0); BUN Creatinine Ratio 18.3 (10-20); Bilirubin,Total 0.7 mg/dl (0.2-1.0); Calcium 8.5 mg/dl (8.5-10.1); Creatinine Clr Calc Pharmacy 48.1 ml/min; Est GFR (African American) 91.5 ml/min; Globulin 2.8 gm/dl (2.5-4.0); Magnesium 2.1 mg/dl (1.7-2.4); Potassium 3.5 mmol/L (3.5-5.1); Total Protein 6.5 gm/dl (6.0-8.3)
--- NOTE | 2022-09-08 08:00 | Electrocardiogram Report ---
Test Reason : Blood Pressure : / mmHG Vent. Rate : 059 BPM Atrial Rate : 059 BPM P-R Int : 162 ms QRS Dur : 080 ms QT Int : 428 ms P-R-T Axes : 070 047 094 degrees QTc Int : 423 ms Sinus bradycardia T-wave inversion in Anterior leads , consider ischemia Nonspecific T wave abnormality Lateral leads Abnormal ECG When compared with ECG of 07-SEP-2022 06:14, T wave inversion more evident in Anterior leads Confirmed by Ryan Barajas ([id number]) on 09/08/2022 8:00:45 AM Referred By: REFERRED SELF Confirmed By:Ryan Barajas
[2022-09-08] MEDS: amLODIPine BESYLATE 5 MG TAB PO SCH (08:39)
[2022-09-08] MEDS: GALANTAMINE HYDROBROMIDE 8 MG CAPER PO SCH (08:40)
[2022-09-08] MEDS: QUEtiapine FUMARATE 25 MG TABLET PO SCH (08:40)
[2022-09-08] MEDS: HEPARIN SOD 5,000 UNIT/0.5 ML VIAL SQ SCH (08:41)
[2022-09-08] MEDS ORDERED: DOCUSATE SODIUM 100 MG CAP PO SCH (09:00)
--- NOTE | 2022-09-08 11:30 | Discharge Summary ---
Date of Service September 08, 2022 Admission HPI Per Admitting Provider The patient is an 86-year-old male with a past medical history including glenohumeral arthritis, uncontrolled hypertension, mixed Alzheimer's and vascular dementia, dyslipidemia, asthma, hereditary elliptocytosis, SNHL of both ears, iron deficiency anemia, enlarged prostate and insomnia. The patient reportedly had gone into the restroom earlier to take a shower, and have it in there for a longer time than usual. They heard a loud noise, and after a delay in getting the room, were able to talk with the patient, and the patient was brought to the ED for further assessment. Caretakers report that he has been m ore confused than his baseline with decreased oral intake over the past 24 hours. The patient himself is not able to contribute to his HPI or review of systems, and information is gathered from his 2 acute caretakers who are in the room Principal Diagnosis Metabolic encephalopathy, possible viral illness, uncontrolled hypertension, elevated troponin without acute coronary syndrome Discharge Exam General-alert . Difficult to assess orientation due to language barrier. No acute problems . Baseline dementia HEENT-head atraumatic and normocephalic, pupils equal and reactive to light, extraocular muscles intact Neck-no lymphadenopathy or thyromegaly, trachea midline Chest-clear to auscultation anteriorly. No wheezing or rhonchi Cardiac-regular rate and rhythm, normal S1 and S2 Abdomen-normal bowel sounds, nontender, no hepatosplenomegaly Extremities-no cyanosis, clubbing, or edema Neuro-no apparent focal deficits. Psych-baseline dementia. Cannot assess Discharge Data Allergies Allergy/AdvReac Type Severity Reaction Status Date / Time house dust Allergy Intermediate Sneezing, Verified 09/06/22 23:00 Runny nose, Itchy eyes pollen extracts Allergy Intermediate SNEEZING, Verified 09/06/22 20:28 RUNNY NOSE, ITCHY EYES rivastigmine AdvReac Unknown Vomiting, Verified 09/06/22 23:00 Nausea Consultations 09/06/22 20:34 ED Decision to Admit Stat Ordered Studies 09/06/22 19:13 CT cervical spine wo con Stat CT head/brain wo con Stat Hospital Course (1) Confusion and disorientation: Supportive care. This appears to be a metabolic encephalopathy which has now resolved. He may have had an underlying viral illness. Urine analysis is negative for bacteria. Blood cultures negative to date. Parenteral antibiotics will be discontinued. (2) Uncontrolled hypertension: Amlodipine started on September 07. Improved (3) Mixed Alzheimer's and vascular dementia: Supportive care. Treat any underlying infectious process. Mental status now appears to have returned to baseline (4) Dyslipidemia: Diet control and medication therapy (5) Asthma: Currently stable. Continue current medication management (6) Hereditary elliptocytosis: Aware. Not an active acute problem at this time (7) Sensorineural hearing loss (SNHL) of both ears: Aware. (8) Iron deficiency anemia: Iron supplementation as needed (9) Enlarged prostate: Aware. Not an issue at this time (10) Elevated troponin: No evidence of acute coronary syndrome. (11) Rhabdomyolysis: Very mild. Treated with IV fluids. Serial lab studies (12) Dehydration, mild: Treated with intravenous fluids. Resolved (13) Abnormal ECG: Telemetry. No evidence of acute coronary syndrome. 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 with sheet metal mechanic, September 08 Total Time Total Time Spent Total Time Spent (In Minutes): 35 minutes Discharge Plan Discharge Items Patient Disposition: Home - Self-Care Reason For Visit: ELEVATED TROPONIN, UNRESPONSIVE EPISODE Discharge Diagnosis: Metabolic encephalopathy, suspected viral illness, uncontrolled hypertension, elevated troponin without acute coronary syndrome Activity: Resume your previous activity Non-emergency contact: Primary Care Provider Call non-emergency contact if: you have any medication questions and your symptoms worsen Follow-up/Referrals: Noah Rodriguez, [Primary Care Provider] - Diet: Heart Healthy Addtl Attending Provider Instructions: Amlodipine dosage has been increased to 5 mg daily for better blood pressure control Pending Studies at Discharge: No Stand-Alone Forms: My [facility] [employer], Smoking Cessation Medications and DC Order Prescriptions: New amlodipine [Norvasc] 5 mg Tablet 5 mg PO QAM Qty: 30 0RF Continued galantamine 16 mg capsule,ext rel. pellets 24 hr 16 mg PO QAM Qty: 30 5RF Rx Instructions: administer with breakfast take at 8am docusate sodium [Colace] 100 mg capsule 100 mg PO .every other day melatonin 5 mg capsule 5 mg PO HS acetaminophen [Tylenol Extra Strength] 500 mg tablet 500 mg PO QID PRN (Reason: Pain) loratadine [Claritin] 10 mg tablet 10 mg PO DAILY atorvastatin 10 mg tablet 10 mg PO HS Qty: 30 quetiapine 25 mg tablet 50 mg PO HS Discontinued amlodipine 2.5 mg tablet 2.5 mg PO QAM Discharge Orders: Discharge Order (Routine); Ordered 09/08/22 Ordered By: Ceferino Medina Admission Data Admit Date/Time: 09/06/22 21:34 Attending Provider: Ceferino Medina Admit Provider: Lux Neal Primary Care Provider: Noah Rodriguez Other Providers: Lux Neal Coding Level of Care Code HOSP INP/OBS DISCH >30 MIN Diagnoses Confusion and disorientation R41.0 Uncontrolled hypertension I10 Mixed Alzheimer's and vascular dementia G30.9; F01.50; F02.80 Dyslipidemia E78.5 Asthma J45.909 Hereditary elliptocytosis D58.1 Sensorineural hearing loss (SNHL) of both ears H90.3 Iron deficiency anemia D50.9 Enlarged prostate N40.0 Elevated troponin R77.8 Rhabdomyolysis M62.82 Dehydration, mild E86.0 Abnormal ECG R94.31
== END 2022-09-08 12:56 | disposition home or self-care (01) | DRG 865 ==
LOC: ED 19:07 → SUATTDRO 21:34 → 4W 21:34